=== PATIENT | female | born 1995 | race Caucasian/White ===

== ENCOUNTER 2023-07-10 09:30 | Inpatient (IN) | payer SELFPAY ==
[2023-07-10] VITALS (16 sets, daily range): BP systolic 105–130; BP diastolic 60–74; PULSE 71–100; RESP 15–22; TEMP 35.6–36.9; O2SAT 97–100; BMI 35.9
--- NOTE | 2023-07-10 07:18 | PCM.HP.BLA ---
History and Physical Date of Admission: 07/10/23 PROBLEM: 39 week gestation, accelerated growth, history shoulder dystocia with clavicular fracture of ? PAST SURGICAL HISTORY: PAST SURGICAL HISTORYExpand by Default PAST SURGICAL HISTORY Procedure Laterality Date ? NONE ? PAST MEDICAL HISTORY: PAST MEDICAL HISTORYExpand by Default PAST MEDICAL HISTORY Diagnosis Date ? Fracture of forearm, distal 1999 ? ? SUBJECTIVE: pt doing well. No ctx, vb, lof. Good FM. ? SOCIAL HISTORY: SOCIAL HISTORYExpand by Default Social History ? Tobacco Use ? Smoking status: Never ? ? Passive exposure: Current (does not smoke in the house) ? Smokeless tobacco: Never Vaping Use ? Vaping Use: Never used Substance Use Topics ? Alcohol use: No ? Drug use: No ? ? ALLERGIESExpand by Default ALLERGIES No Known Allergies ? Current Outpatient Medications on File Prior to Visit Medication Sig ? 26/iron ps/folic/dha (PNV-FIRST ORAL) Take by mouth. ? No current facility-administered medications on file prior to visit. ? OBJECTIVE: ? VITALS: BP 117/69 Pulse 78 Resp 16 Ht 5' 7 (1.702 m) Wt 229 lb (103.9 kg) LMP 10/10/2022 (Exact Date) BMI 35.87 kg/m? ? HEENT: Normocephalic, atraumatic, Mucus membranes moist without lesions. ? NECK: Soft and Supple. No adenopathy , thyromegaly or bruits. ? SKIN: No lesions. ? CHEST: No increased respiratory effort. ? HEART: Regular rate. ? BACK: Nontender with no CVA tenderness. ? ABDOMEN: Soft, non-tender, non-distended, no masses, no hepatosplenomegaly. ? LOWER EXTREMITIES: There was no pitting edema, no palpable cords and no skin changes. ? ASSESSMENT: 39 week gestation, accelerated growth, history shoulder dystocia with clavicular fracture of infant ? PLAN: 1) Discussed section vs vaginal delivery including r/b/a. The patient desires to proceed with primary section. The rationale for the proposed surgery was discussed in addition to risks, benefits, and alternatives. General pre- and post-operative care was reviewed. Questions were answered. After discussion, the patient indicated a desire to proceed with the planned surgery. ? Debora Alamo, DO Assessment & Plan Assessment/Plan (1) 39 weeks gestation of : (2) History of shoulder dystocia: (3) Accelerated growth of fetus:
[2023-07-10] MEDS: Acetaminophen 500 MG Tablet 1000 MG PO ×3 (10:16→23:06)
[2023-07-10] MEDS: Lactated Ringers 1,000 ML 999 ML IV (10:17)
[2023-07-10 10:45] LABS: Absolute Lymphocyte Count 1.97 X10^3/uL (0.83-4.51); Absolute Neutrophil Count 9.5 X10^3/uL (2.0-7.7); Basophil# 0.05 X10^3/uL; Basophil% 0.4 % (0-1); Eosinophil# 0.19 X10^3/uL; Eosinophils% 1.5 % (0-5); Hematocrit 34.7 % (37-47); Hemoglobin 11.1 g/dL (12.0-15.0); Lymphocyte # 1.97 X10^3/ul (0.83-4.51); Lymphocyte % 15.8 % (19-41); Mean Corpuscular Hgb 26.3 pg (27.0-32.0); Mean Corpuscular Volume 82.2 fL (81-99); Mean Platelet Vol. 10.2 fl (6.2-12.0); Monocyte# 0.67 X10^3/uL; Monocyte% 5.4 % (0-10); NRBC Flagged by Analyzer 0 % (0-5); Neutrophil # 9.53 X10^3/uL (2.7-7.7); Neutrophil % 76.2 % (47-70); POSITIVE MORPHOLOGY YES; Platelet Count 247 K/mm3 (150-450); RBC Distribution Width CV 22.7 % (11.6-14.6); RBC Distribution Width SD 66.2 fl (35.1-43.9); Red Blood Count 4.22 M/mm3 (4.2-5.4); White Blood Count 12.5 K/mm3 (4.4-11.0)
[2023-07-10 10:51] LABS: Differential Indicated SCAN CRITERIA MET
[2023-07-10 11:18] LABS: Syphilis Antibodies Non-reactive
[2023-07-10] MEDS: Lactated Ringers 1,000 ML 150 ML IV (11:31)
[2023-07-10 11:43] LABS: Anisocytosis 2+
[2023-07-10] MEDS: Sodium Citrate/Citric Acid 30 ML UDC PO (11:54)
[2023-07-10] MEDS: Cefazolin 2 GM in 0.9% Normal Saline (100mL Bag) 100 ML IV (11:57)
--- NOTE | 2023-07-10 13:11 | OP.PCM_ITS ---
Problems Associated Problem List Diagnoses (1) Accelerated growth of fetus: (2) History of shoulder dystocia: (3) 39 weeks gestation of : (4) Delivery by elective section: Report of Operation Date of Procedure: 07/10/23 Pre-Operative Diagnosis: 39 week gestation, single IUP, accelerated growth, history shoulder dystocia, elective primary section Post-Operative Diagnosis: As above Surgery/Procedure Performed:: PLTCS via pfannenstiel incision Description of Surgical Findings:: VMI in cephalic presentation with apgars 8,9 with a loose nuchal cord x 1. Normal appearing uterus and bilateral adnexa. Surgeon: Debora Alamo president consumer electronics company: Lyle GOMEZ Type of Anesthesia: Spinal Special Medications: None Specimen's removed: Placenta Drains: Rodriguez Estimated Blood Loss (mL): 700 Fluids Replaced: 1000 mL Description of Procedure: Patient was taken to the operating where spinal anesthesia was induced and found to be adequate. She was prepped and draped in the dorsal lithotomy position with a leftward tilt. A Pfannenstiel skin incision was made using a scalpel carried down to the underlying layer of fascia. The fascia incised in the midline. The fascia was extended laterally using Cassidy scissors. The fascia was then dissected off the rectus muscles using sharp dissection in a cephalad and caudad direction. Rectus muscles were midline. The peritoneum was entered bluntly with good visualization of bladder. The peritoneal incision was extended bluntly with lateral traction. Bladder blade was inserted. A low transverse incision was made on the uterus with a scalpel. Membranes were ruptured for clear fluid with an Allis clamp. The head of the was flexed and delivered followed by the body without any traction, force, or delay. The infant was delivered through a loose nuchal cord x 1. The cord was clamped and cut after a slight delay and the vigorous viable male infant was handed off to the awaiting nursery staff. Placenta was removed with manual extraction. The uterus was exteriorized. The uterus was cleared of all clot and debris. The hysterotomy was closed with 1-0 Vicryl in a running locked fashion. Several additional [id number] sutures were placed for hemostasis. Hemostasis was noted. Bilateral adnexa were normal-appearing. The uterus was placed back into the abdomen. Hemostasis was again noted. The peritoneum was closed with 3-0 Vicryl in a running fashion. The subfascial space was examined and noted to be hemostatic. The fascia was closed with STRATAFIX in a running fashion. The subcutaneous space was irrigated and made hemostatic with the Bovie cautery. Subcutaneous space was reapproximated with 3-0 Vicryl in a running fashion. The skin was closed with 4-0 Monocryl in a subcuticular fashion. A dressing was placed. Instrument, sharp, sponge counts were correct. The patient was taken to the recovery room in stable condition. Surveyor Rod Helper Lyle GOMEZ was present for the entire case and assisted with draping the patient, delivery of the , and closure. Grafts/Implants Used: None Procedure Start Time: 12:28 Procedure Stop Time: 13:10 Complications None Admit VTE Documentation VTE Present on Admission: No VTE Mechan Device Prophylaxis: SCD's
[2023-07-10] MEDS: Oxytocin 15 Units/NS 250ml 15 UNITS/250 ML IV.SOLN 83 UNITS IV (13:33)
[2023-07-10] MEDS: Ketorolac 30 MG/ML Syringe IV ×2 (13:50→20:06)
[2023-07-10] MEDS: Lactated Ringers 1,000 ML 100 ML IV (16:48)
[2023-07-10] MEDS: Rho(D) Immune Globulin 300 MCG (1500 Unit) Syringe IV (18:32)
[2023-07-11] MEDS: Ketorolac 30 MG/ML Syringe IV ×2 (02:05→08:47)
[2023-07-11] MEDS: 0.9% Saline Lock 10 ML Syringe IV (02:06)
[2023-07-11] MEDS: Acetaminophen 500 MG Tablet 1000 MG PO ×3 (05:04→18:32)
[2023-07-11 05:08] VITALS: BP 107/56; PULSE 70; RESP 16; TEMP 36.7; O2SAT 99
[2023-07-11 05:24] LABS: Hematocrit 28.3 % (37-47); Hemoglobin 8.8 g/dL (12.0-15.0); Mean Corp Hgb Conc 31.1 g/dL (32-36); Mean Corpuscular Hgb 25.9 pg (27.0-32.0); Mean Corpuscular Volume 83.2 fL (81-99); Mean Platelet Vol. 10.1 fl (6.2-12.0); POSITIVE MORPHOLOGY YES; Platelet Count 201 K/mm3 (150-450); RBC Distribution Width CV 22.8 % (11.6-14.6); RBC Distribution Width SD 66.7 fl (35.1-43.9); White Blood Count 21.3 K/mm3 (4.4-11.0)
[2023-07-11 05:28] LABS: Scan Indicated on CBC? Y/N YES- FLAGS NOTED
[2023-07-11 06:14] LABS: Differential Comment SCANNED
[2023-07-11 08:20] VITALS: BP 88/63; PULSE 82; RESP 16; TEMP 36.5; O2SAT 98
[2023-07-11 08:52] VITALS: BP 99/59
--- NOTE | 2023-07-11 08:54 | CASEMGMT ---
Social Work Brief Assessment Labor and Delivery Unit Date/Time of referral: 07/10/23, 11:09am Referred by: Debora Alamo DO Date/Time of intervention: 07/11/23, 8:40am Reason for referral: Mom recovering addict(OSCAR's mother) History obtained from: Medical record, MOB Household composition: YANN MOORE, daughter Belinda who is 11 and now baby Arron. OSCAR and YANN have been together for 13 years. They have been 3 years. Joao is the father of Belinda as well Parent/Guardian status: MOB and FOB are guardians of this baby Medical History: MOB/Baby: Baby had accelerated growth, hx of shoulder dystocia w/first child. Baby born 12:28pm on 07/10/[birth year], Apgars 8 and 9 at one and five minutes, 4170 grams at . Financial Status: MOB states no concerns. They do not have insurance, MOB states they do not need financial resources in regard to this, can pay the hospital bills. 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 OSCAR was a fine arts chair but is going to stay home now with the children. Infant supplies: They have all needed supplies including diapers, wipes, formula and bottles if needed, crib, bassinet, car seat, clothing. Programs/Agencies/Children's Services/Legal Issues: None Behavioral Health issues: Mental Health: None as per MOB for MOB or FOB. Substance Abuse: No history of substance abuse for MOB or FOB as per MOB. No tox screens completed on MOB or baby. Safety: No safey concerns as per MOB. Family history of substance abuse: As per MOB, her mother has a substance abuse history. She does not know where her mother is in the recovery process as she has not spoken w/her in three years. MOB reports her mother's addiction does not have an impact on her at this time, and she is not in contact with her. Family/Social Stressors: None reported Childcare/Caregivers/Support System: YANN's mother, she lives next door. OSCAR's sister, who was in room when SW arrived, as per MOB, she watched MOB's daughter when she was little. MOB's grandmother depression and anxiety/shaken baby/safe sleeping/[facility] Resources/counseling resources/Help Me Grow: SW gave MOB resources on all of these topics and reviewed in particular the information on PPD and anxiety. SW reviewed warning signs and explained should she have symptoms to speak to her physician about it. MOB states understanding. Assessment: MOB appropriate w/SW, answered all questions. MOB holding baby and appropriate in care, expressing happiness in having a second child. MOB states had no PPD with her first child and just remembers being over the hobson when she was born. Plan: Baby to return home w/family at discharge. No additional social service needs are anticipated at this time. GERALDINE Del Real
--- NOTE | 2023-07-11 09:07 | PN.OBGYN_ITS ---
Subjective Subjective The patient is doing well this morning. She is ambulating without lightheadedness or dizziness. She denies chest pain, shortness of breath, leg pain. She is eating well without nausea or vomiting. Her pain is well- controlled. She is voiding without difficulty. She offers no complaints this morning. Objective Data Objective Data Vital Signs: Vital Signs Temp Pulse Resp BP Pulse Ox O2 Del Method 97.7 F L 82 16 99/59 L 98 Room Air 07/11/23 08:20 07/11/23 08:20 07/11/23 08:20 07/11/23 08:52 07/11/23 08:20 07/11/23 08:20 Oxygen Delivery Method Room Air Weight: 229 lb 8 oz Body Mass Index (BMI) 35.9 Intake & Output: Intake and Output for Last 24 Hours 07/09/23 07/10/23 07/11/23 23:59 23:59 23:59 Intake Total 2212.5 / 2212.5 Output Total 1900 / 1900 500 / 500 Balance 312.5 / 312.5 -500 / -500 Lab / Micro Data 07/11/23 05:18 Labs: Laboratory Results - last 24 hr 07/10/23 10:25: WBC 12.5 H, RBC 4.22, Hgb 11.1 L, Hct 34.7 L, MCV 82.2, MCH 26.3 L, MCHC 32.0, RDW Std Deviation 66.2 H, RDW Coeff of Vanessa 22.7 H, Plt Count 247, MPV 10.2, Immature Gran % (Auto) 0.700, Neut % (Auto) 76.2 H, Lymph % (Auto) 15.8 L, Story % (Auto) 5.4, Eos % (Auto) 1.5, Baso % (Auto) 0.4, Absolute Neuts (auto) 9.5 H, Absolute Lymphs (auto) 1.97, Nucleated RBC % 0, Anisocytosis 2+, Syphilis Total Ab Non-reactive, Blood Type O NEGATIVE, Antibody Screen NEGATIVE 07/10/23 15:15: Screen NEGATIVE, Baby's Blood Type B POSITIVE, Baby's DM NEGATIVE 07/11/23 05:18: WBC 21.3 H, RBC 3.40 L, Hgb 8.8 L, Hct 28.3 L, MCV 83.2, MCH 25.9 L, MCHC 31.1 L, RDW Std Deviation 66.7 H, RDW Coeff of Vanessa 22.8 H, Plt Count 201, MPV 10.1, Differential Comment SCANNED Physical Exam Const alert and no apparent distress Constitutional Narrative: infant General Appearance: comfortable Assessment & Plan (1) Delivery by elective section: PLAN: The patient is postoperative day 1 from a primary section. She is doing well. Acute blood loss anemia noted that is appropriate for surgery. She has no symptoms of anemia. Discussed iron on discharge. Routine postoperative care and anticipate discharge to home tomorrow.
[2023-07-11 10:28] VITALS: PULSE 72; RESP 17; O2SAT 97
[2023-07-11 12:25] VITALS: BP 104/58; PULSE 71; RESP 16; TEMP 36.8; O2SAT 99
[2023-07-11] MEDS: Senna/Docusate Sodium 1 Tablet PO (16:25)
[2023-07-11] MEDS: Ibuprofen 600 MG Tablet PO (16:25)
[2023-07-11 16:27] VITALS: BP 115/73; PULSE 82; RESP 16; TEMP 36.9; O2SAT 98
--- NOTE | 2023-07-16 15:19 | NURSING ---
Follow up phone call attempted. No answer, voicemail left by this RN.
--- NOTE | 2023-08-07 15:01 | PCM.DC ---
Discharge Instructions Diet Discharge Diet: No restrictions Activity Discharge Activity: May Not Drive and May Shower May resume sexual activity in: 6 weeks Weight Bearing Status: Weight bearing as tolerated Lifting Restrictions: nothing heavier than baby Dressing / Incision Call your doctor if your incision/area has: Continuous Slow Oozing, Sudden Increased Bleeding, Increased Pain/ Swelling, Increased Redness, Foul Smelling Discharge and Swelling at the incision site Call your doctor if you observe: Fever of 101 or Higher, Coldness, Increased Pain, Numbness or Tingling, Change in Color, Inability to urinate, Inability to have a bowel movement, Using more than 1 pad per hour, Shortness of breath, Dizziness, Fainting spells, Swelling in the ankles, Chest pain, Increased palpitations (irregular heartbeat), Calf discomfort and Uncontrolled pain Suture Line Care: Avoid Pulling/Pushing and Avoid Pinching/Bending Cleanse incision/area with: Soap & Water Follow Up Care When: 1 week incision check 6 week exam Test Results: Test results from this visit will be discussed in further detail at your follow-up appointment, if applicable. Discharge Plan Admission Admit Date/Time: 07/10/23 09:30 Attending Provider: Debora Alamo Primary Care Provider: Kameron Physician,Brielle Primary Instructions Patient Instructions: After a Discharge Orders/Prescriptions Referrals / Follow Up: Care Physician,No Primary [Primary Care Provider] - Disposition Disposition (needs filled in before D/C Order can be placed): Home, Self Care
== END 2023-07-11 19:10 | disposition home or self-care (01) | DRG 787 ==
PROVIDERS: Admitting Provider Obstetrics & Gynecology; Visit Provider Obstetrics & Gynecology
PROC: 10D00Z1 Extraction of Products of Conception, Low, Open Approach (ICD-10-PCS; CPT 59514; principal; 2023-07-10 11:45)
DX: O36.63X0 Maternal care for excessive fetal growth, third trimester, not applicable or unspecified (principal); D62 Acute posthemorrhagic anemia; O69.81X0 Labor and delivery complicated by cord around neck, without compression, not applicable or unspecified; Z37.0 Single live birth; Z3A.39 39 weeks gestation of pregnancy; Z87.59 Personal history of other complications of pregnancy, childbirth and the puerperium; O90.81 Anemia of the puerperium
CPT/HCPCS: 59025; 59050; 85025; 85027; 85461; 86780; 86850; 86900; 86901; 90384; 99221; J7120; A4216; G0378; J2405; J2790; J2791